=== PATIENT | male | born 1995 | race Caucasian/White ===

== ENCOUNTER 2018-02-10 19:06 | Emergency (ER) | END 2018-02-10 22:04 | disposition left against medical advice (07) | LOC: ER 19:06 | DX: Z53.21 Procedure and treatment not carried out due to patient leaving prior to being seen by health care provider (principal) ==

== ENCOUNTER 2019-07-30 19:43 | Emergency (ER) | payer SELFPAY ==
[2019-07-30] MEDS ORDERED: DEXAMETHASONE CONC 1 MG/ML SOLN PO ONE (20:10)
[2019-07-30] MEDS ORDERED: IBUPROFEN 800 MG TABLET PO ONE (20:10)
[2019-07-30] MEDS ORDERED: ALBUTEROL SULFATE 0.083% NEB 2.5 MG/3 ML AMPUL NEB ONE (20:10)
--- NOTE | 2019-07-30 20:11 | ER Document Report ---
ED General - General Chief Complaint: Swollen tonsils Stated Complaint: TONSIL PAIN/CHEST CONGESTION Time Seen by Provider: 07/30/19 20:04 TRAVEL OUTSIDE OF THE [place] IN LAST 30 DAYS: No - Related Data Allergies/Adverse Reactions: peanut Allergy (Verified 07/30/19 19:59) Past Medical History - Social History Smoking Status: Never Smoker Patient has suicidal ideation: No Patient has homicidal ideation: No Physical Exam - Vital signs Vitals: Temp Pulse Resp BP Pulse Ox 101.4 F H 119 H 22 H 170/83 H 92 07/30/19 19:55 07/30/19 19:55 07/30/19 19:55 07/30/19 19:55 07/30/19 19:55 Course - Vital Signs Vital signs: Temp Pulse Resp BP Pulse Ox 101.4 F H 119 H 22 H 170/83 H 92 07/30/19 19:55 07/30/19 19:55 07/30/19 19:55 07/30/19 19:55 07/30/19 19:55
--- NOTE | 2019-07-30 20:52 | RADIOLOGY REPORT (SQ) ---
XR CHEST 2 VIEWS CLINICAL STATEMENT: cough, fever COMPARISON: None FINDINGS: Cardiomediastinal silhouette is within normal limits. Patchy airspace disease in left lower lobe consistent with pneumonia. No pneumothorax. No pleural effusions. IMPRESSION: Patchy left lower lobe pneumonia.
[2019-07-30] MEDS ORDERED: CEFTRIAXONE 1 GM/D5W RTU 1 GM/50 ML RTUPB IV ONE (21:09)
[2019-07-30] MEDS ORDERED: AZITHROMYCIN INJ 500 MG VIAL IV ONE (21:10)
--- NOTE | 2019-07-30 21:17 | ER Document Report ---
ED Medical Screen (RME) - General Chief Complaint: Swollen tonsils Stated Complaint: TONSIL PAIN/CHEST CONGESTION Time Seen by Provider: 07/30/19 20:04 TRAVEL OUTSIDE OF THE [place] IN LAST 30 DAYS: No - HPI Notes: 07/30/19 21:17 23-year-old male to the emergency department with complaints of sore throat, cough for the past "year but worse in the past month. He states that he needs to get his tonsils out because he keeps getting strep throat but he cannot afford to because he has no insurance. He states that his most recent episode of sore throat and tonsil swelling began in June and has just progressively gotten worse. He states his cough is likely from his tonsils. He states that he has had a fever for almost 1 month. Today in the emergency department he has a fever of 101.5, he is tachycardic, his O2 sat is 92%. He is coughing with production. I performed a brief medical screening exam on the patient and determined that he will need further evaluation and management by main side provider. I have placed initial sepsis orders to include azithromycin and Rocephin. Patient has been placed in bed 7 and attending provider was made aware. - Related Data Allergies/Adverse Reactions: peanut Allergy (Verified 07/30/19 19:59) Physical Exam - Vital signs Vitals: Temp Pulse Resp BP Pulse Ox 101.4 F H 119 H 22 H 170/83 H 92 07/30/19 19:55 07/30/19 19:55 07/30/19 19:55 07/30/19 19:55 07/30/19 19:55 Course - Vital Signs Vital signs: Temp Pulse Resp BP Pulse Ox 101.4 F H 119 H 22 H 170/83 H 92 07/30/19 19:55 07/30/19 19:55 07/30/19 19:55 07/30/19 19:55 07/30/19 19:55
[2019-07-30] MEDS: NORMAL SALINE 1000 ML 1,000 ML IV PRN ×2 (21:54→22:52)
[2019-07-30 21:57] LABS: ABSOLUTE BASOPHILS # (AUTO) 0.1 10^3/uL (0.0-0.2); ABSOLUTE EOSINOPHILS # (AUTO) 0.1 10^3/uL (0.0-0.6); ABSOLUTE LYMPHOCYTES (AUTO) 2.1 10^3/uL (0.5-4.7); ABSOLUTE MONOCYTES (AUTO) 0.9 10^3/uL (0.1-1.4); ABSOLUTE NEUT (AUTO) 8.6 10^3/uL (1.7-8.2); BASOPHILS % (AUTO) 0.5 % (0-2); EOSINOPHILS % (AUTO) 0.5 % (0-6); HEMATOCRIT 39.7 % (37.9-51.0); HEMOGLOBIN 13.3 g/dL (13.5-17.0); LYMPHOCYTES % (AUTO) 17.5 % (13-45); MEAN CORPUSCULAR HEMOGLOBIN 29.5 pg (27.0-33.4); MEAN CORPUSCULAR HGB CONC 33.5 g/dL (32.0-36.0); MEAN CORPUSCULAR VOLUME 88 fl (80-97); PLATELET COUNT 415 10^3/uL (150-450); RED BLOOD COUNT 4.51 10^6/uL (4.35-5.55); RED CELL DISTRIBUTION WIDTH 13.5 % (11.5-14.0); SEGMENTED NEUTROPHILS % (AUTO) 73.5 % (42-78); TOTAL CELLS COUNTED % (AUTO) 100 %; WHITE BLOOD COUNT 11.7 10^3/uL (4.0-10.5)
[2019-07-30 22:20] LABS: ALKALINE PHOSPHATASE 77 U/L (38-126); ANION GAP 13 (5-19); ASPARTATE AMINO TRANSFERASE 123 U/L (17-59); BILIRUBIN,DIRECT 0.1 mg/dL (0.0-0.4); BILIRUBIN,TOTAL 0.4 mg/dL (0.2-1.3); BLOOD UREA NITROGEN 11 mg/dL (7-20); CALCIUM 9.4 mg/dL (8.4-10.2); CARBON DIOXIDE 25 mmol/L (22-30); CHLORIDE 101 mmol/L (98-107); GLUCOSE 115 mg/dL (75-110); TOTAL PROTEIN 7.3 g/dL (6.3-8.2)
[2019-07-30] MEDS ORDERED: ACETAMINOPHEN 325 MG TABLET PO ONE (22:36)
[2019-07-30] MEDS ORDERED: IPRATROPIUM/ALBUTEROL 0.5-2.5 MG/3 ML AMPUL NEB ONE (22:44)
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
[2019-07-31] MEDS ORDERED: NORMAL SALINE 1000 ML 1,000 ML IV ONE (00:01)
[2019-07-31 02:00] VITALS: BP 135/72
[2019-07-31] MEDS ORDERED: ALBUTEROL SULFATE HFA (90 MCG/PUFF) 8 GM MDI (1 MDI/ER DISP) IH PRN (02:01)
== END 2019-07-31 02:54 | disposition home or self-care (01) ==
LOC: ER 19:43
DX: J18.9 Pneumonia, unspecified organism (principal); J02.9 Acute pharyngitis, unspecified; R05 Cough; R50.9 Fever, unspecified; R00.0 Tachycardia, unspecified; Z91.010 Allergy to peanuts
CPT/HCPCS: 94640; 99283; 96361; 96365; 96366; 96367; 36415; 87040; 87070; 87880; 83605; 85025; 80053; 71046; J7030 ×2; J0456; J0696; J3490; J7620; J8540